=== PATIENT | male | born 1965 | race Caucasian/White ===

== ENCOUNTER 2018-08-19 11:03 | Day surgery (SDC) | payer MEDICARE ==
[2013-02-28 12:14] VITALS: BP 144/95
[2018-08-19] MEDS ORDERED: Depo-Medrol 40 MG/ML IM ONE (11:04)
[2018-08-19] MEDS ORDERED: Sodium Chloride 0.9(Preservative Free) 10 ML IJ ONE (11:04)
[2018-08-19] MEDS ORDERED: Xylocaine 1% Vial 30 ML PF IJ ONE (11:04)
--- NOTE | 2018-08-19 13:40 | XRAY ---
33 seconds fluoroscopy time in surgery for left L3-L5 ROSIE.
--- NOTE | 2018-08-19 13:44 | XRAY ---
Indication: Left L3-L5 ROSIE. Intraoperative fluoroscopy was provided for 33 seconds. 3 digital spot images submitted for interpretation demonstrates posterior spinal needle tips projecting over the expected course of the left L3 and L4 nerve roots. Small amount of contrast injected for needle tip placement. Correlate with intraoperative findings/report.
== END 2018-08-19 13:16 | disposition home or self-care (01) ==
LOC: SDC-PAIN 11:03
PROVIDERS: ATTEND Psychiatry & Neurology Pain Medicine
DX: M54.16 Radiculopathy, lumbar region (principal); M47.816 Spondylosis without myelopathy or radiculopathy, lumbar region; I10 Essential (primary) hypertension; J44.9 Chronic obstructive pulmonary disease, unspecified; E78.00 Pure hypercholesterolemia, unspecified; K21.9 Gastro-esophageal reflux disease without esophagitis; J45.909 Unspecified asthma, uncomplicated; F20.9 Schizophrenia, unspecified; G25.81 Restless legs syndrome; Z79.899 Other long term (current) drug therapy
CPT/HCPCS: 72020; 77003; J1030; J2001

== ENCOUNTER 2020-10-06 14:17 | Observation (INO) | payer MEDICARE ==
[2020-10-06] MEDS ORDERED: Zofran 4 MG/2 ML VIAL IV ONE (14:58)
[2020-10-06] MEDS ORDERED: Sodium Chloride 0.9% 1000 ML 1,000 ML IV STA (14:58)
[2020-10-06] MEDS ORDERED: Zofran 4 MG/2 ML VIAL ONE (15:11)
[2020-10-06] MEDS ORDERED: MORPHINE SULFATE 4 MG INJ ONE (15:12)
[2020-10-06] MEDS ORDERED: Sodium Chloride 0.9% 1000 ML 1,000 ML ONE (15:12)
[2020-10-06 15:16] LABS: Appearance CLEAR (CLEAR); Bilirubin NEGATIVE (NEGATIVE); Blood SMALL Ery/ul (0-5); Glucose NEGATIVE (NEGATIVE); Ketones NEGATIVE (NEGATIVE); Leukocyte Esterase NEGATIVE (NEGATIVE); Mucus SLIGHT /HPF (NEGATIVE); Nitrite NEGATIVE (NEGATIVE); Protein,Urine Dip NEGATIVE (Negative); RBC 0-2 /HPF (0-2); Specific Gravity 1.011 (1.005-1.025); Urobilinogen NEGATIVE mg/dL (0-1)
[2020-10-06] MEDS: MORPHINE SULFATE 4 MG INJ IV ONE ×2 (15:18→18:00)
[2020-10-06 15:19] LABS: Bacteria NONE SEEN /HPF (NEGATIVE)
[2020-10-06 15:21] LABS: Absolute Neutrophil Ct (ANC) 5.08 (1.4-6.9); BASOPHIL % 0.1 % (0.0-0.4); Basophil (Absolute #) 0.01 (0-0.4); Eosinophil % 0.4 % (0.00-5.0); Eosinophil (Absolute #) 0.03 (0-0.5); Hematocrit 41.5 % (42-50); Hemoglobin 13.5 gm/dl (12.5-18.0); Lymphocyte (Absolute #) 0.92 (1.0-4.6); Lymphocytes % 13.2 % (24.0-44.0); Mean Cell Volume 93.5 fl (78-100); Mean Corpuscular Hemoglobin 30.4 pg (26-32); Mean Corpuscular Hgb Concent. 32.5 g/dl (32-36); Mean Platelet Volume 10.7 fl (7.5-11.0); Monocyte (Absolute #) 0.93 (0.0-1.3); Monocytes % 13.3 % (0.0-12.0); Platelet Count 180 K/mm3 (150-450); Red Blood Count 4.44 M/mm3 (4.1-5.6); Red Cell Distribution Width 13.6 % (11.5-14.0)
[2020-10-06 15:26] LABS: ALBUMIN 4.1 g/dL (3.5-5.0); ALKALINE PHOSPHATASE 87 U/L (38-126); ANION GAP 13.6 MEQ/L (5-15); BLOOD UREA NITROGEN 15 mg/dL (9-20); CHLORIDE 102 mmol/L (98-107); Calcium 9.2 mg/dL (8.4-10.2); Carbon Dioxide 27 mmol/L (22-30); Creatinine 1 0.79 mg/dL (0.66-1.25); EST GLOMERULAR FILTRATION RATE > 60.0 ML/MIN; Glucose 124 mg/dL (74-106); LIPASE 20 U/L (23-300); Potassium 3.8 mmol/L (3.5-5.1); SGOT/AST 25 U/L (17-59); SGPT/ALT 29 U/L (0-50); SODIUM 139 mmol/L (137-145); Total Protein 6.7 g/dL (6.3-8.2)
--- NOTE | 2020-10-06 15:27 | ERPHSYRPT ---
- History of Present Illness Time Seen by Provider: 10/06/20 14:20 Historian: patient Exam Limitations: no limitations Patient Subjective Stated Complaint: abd pain and diarrhea Triage Nursing Assessment: pt to ED c/o abd pain and diarrhea x 4 days, many episodes daily. tolerating PO well at this time reported. states q 15 minutes he is having diarrhea episode. rates 1/10 sharp lower abd pain that does not radiate. no NV or COVID exposure reported. skin PWD. A&Ox3. ambulatory without assist. Physician History: 55 years old male presented in the ER with chief complaint of 4-day history of left-sided abdominal pain and diarrhea. Patient report having multiple episodes of loose watery stool with a little tinge of blood earlier today. He denies passing any clots. Pain is moderate intensity, sharp cramping in nature, without any significant aggravating or relieving factors. Patient feels weak fatigued tired and dehydrated. Denies any nausea or vomiting associated with it. No fever or chills reported. Timing/Duration: day(s) (4), gradual onset, worse Activities at Onset: rest Quality: cramping, sharpness Abdominal Pain Onset Location: LLQ, flank Pain Radiation: no radiation Severity of Pain-Max: moderate Severity of Pain-Current: moderate Modifying Factors: Worsens With: movement, palpation, vomiting Associated Symptoms: diarrhea, No fever/chills Previous symptoms: no prior history Allergies/Adverse Reactions: No Known Drug Allergies Allergy (Verified 10/06/20 14:32) Home Medications: Aripiprazole [Abilify] 30 mg PO DAILY 02/28/13 [History] Aspirin [Aspirin EC] 81 mg PO DAILY 02/28/13 [History] Metoprolol Succinate 25 mg Xl* [Toprol-Xl 25MG Tablets] 25 mg PO DAILY 02/28/13 [History] Multivitamin W-Minerals/Lutein [Centrum Silver Tablet] 1 each PO DAILY 02/28/13 [History] Tizanidine HCl 4 mg [Zanaflex 4 MG] 4 mg PO BIDPRN PRN 02/28/13 [History] Omeprazole 20 MG [Prilosec 20 mg] 1 cap PO DAILY 05/21/13 [History] Pravastatin Sodium 10 mg [Pravachol 10 MG] 1 tab PO DAILY 05/21/13 [History] Albuterol Sulfate [Proair Respiclick] 90 mcg IH QID 08/31/15 [History] Fluticasone Propionate [Flonase NASAL] 16 gm NS DAILY 08/31/15 [History] Nitroglycerin 0.4 mg Tablet [Nitrostat 0.4 MG Tablet] 0.4 mg SL ...PRN 08/31/15 [History] Pramipexole Di-HCl [Mirapex] 0.5 mg PO HS 08/31/15 [History] cilostazoL [Cilostazol] 50 mg PO BID 08/31/15 [History] Oxycodone HCl/Acetaminophen [Percocet 7.5-325 mg Tablet] 1 each PO Q6H PRN PRN 09/08/17 [History] Celecoxib [Celebrex] 200 mg PO DAILY 11/10/17 [History] Gabapentin 300 mg PO HS 11/10/17 [History] Amitriptyline HCl 25 mg [Elavil 25 mg] 25 mg PO DAILY 10/06/20 [History] Hx Tetanus, Diphtheria Vaccination/Date Given: No Hx Influenza Vaccination/Date Given: Yes Hx Pneumococcal Vaccination/Date Given: No Immunizations Up to Date: Yes Travel Risk - International Travel Have you traveled outside of the country in past 3 weeks: No - Coronavirus Screening Are you exhibiting any of the following symptoms?: Yes Symptoms: Vomiting/Diarrhea Close contact with a COVID-19 positive Pt in past 14-21 Days: No - Vaccine Status Have you recieved a Covid-19 vaccination: Yes [employer]: Moderna - Vaccination Dates Date of 2cond Vaccination (if applicable): due 10/17/20 - Review of Systems Constitutional: No Symptoms Eyes: No Symptoms Ears, Nose, & Throat: No Symptoms Respiratory: No Symptoms Cardiac: No Symptoms Abdominal/Gastrointestinal: Abdominal Pain, Diarrhea Genitourinary Symptoms: No Symptoms Musculoskeletal: No Symptoms Skin: No Symptoms Neurological: No Symptoms Psychological: No Symptoms Endocrine: No Symptoms Hematologic/Lymphatic: No Symptoms Immunological/Allergic: No Symptoms - Past Medical History Pertinent Past Medical History: Yes Cardiac History: Coronary Artery Disease, High Cholesterol, Hypertension Respiratory History: COPD Musculoskeletal History: Arthritis GI Medical History: GERD Psycho-Social History: Anxiety, Bipolar, Depression, Other Male Reproductive Disorders: No Pertinent History - Past Surgical History Past Surgical History: Yes Cardiac: Cardiac Catheterization, Pacemaker - Social History Smoking Status: Never smoker Exposure to second hand smoke: No Drug Use: none Patient Lives Alone: No - Nursing Vital Signs Nursing Vital Signs: Initial Vital Signs Temperature 98.9 F 10/06/20 14:25 Pulse Rate 90 10/06/20 14:25 Respiratory Rate 19 10/06/20 14:25 Blood Pressure 143/79 10/06/20 14:25 O2 Sat by Pulse Oximetry 96 10/06/20 14:25 Pain Scale Pain Intensity 3 - Physical Exam General Appearance: no apparent distress, alert Eye Exam: eyes nml inspection Ears, Nose, Throat Exam: normal ENT inspection, pharynx normal Neck Exam: normal inspection, supple, full range of motion Respiratory Exam: normal breath sounds, lungs clear Cardiovascular Exam: regular rate/rhythm, normal heart sounds Gastrointestinal/Abdomen Exam: soft, normal bowel sounds, tenderness (LLQ, flank suprapubic ) Back Exam: normal inspection, normal range of motion, No CVA tenderness Extremity Exam: normal inspection, normal range of motion Neurologic Exam: alert, oriented x 3, cooperative Skin Exam: normal color SpO2 Interpretation: normal SpO2: 96 O2 Delivery: Room Air Ordered Tests: Active Orders 24 hr Category Date Time Status IV Insertion STAT Care 10/06/20 14:58 Active NPO (ED) STAT Care 10/06/20 14:58 Active ABDOMEN AND PELVIS W CONTRAST [CT] Stat Exams 10/06/20 14:59 Completed CBC W DIFF Stat Lab 10/06/20 14:37 Completed CMP Stat Lab 10/06/20 14:37 Completed LIPASE Stat Lab 10/06/20 14:37 Completed UA W/RFX UR CULTURE Stat Lab 10/06/20 14:58 Completed Medication Summary Generic Name Dose Route Start Last Admin Trade Name Freq PRN Reason Stop Dose Admin Piperacillin Sod/Tazobactam 100 mls @ 200 mls/hr 10/06/20 16:44 Sod 3.375 gm/ Sodium Chloride IV 10/06/20 17:13 STAT ONE Discontinued Medications Generic Name Dose Route Start Last Admin Trade Name Freq PRN Reason Stop Dose Admin Sodium Chloride 1,000 mls @ 999 mls/hr 10/06/20 14:58 10/06/20 15:17 Sodium Chloride 0.9% 1000 Ml IV 10/06/20 15:58 999 mls/hr .Q1H1M STA Administration Sodium Chloride Confirm 10/06/20 15:12 Sodium Chloride 0.9% 1000 Ml Administered 10/06/20 15:13 Dose 1,000 mls @ ud .ROUTE .STK-MED ONE Morphine Sulfate 4 mg 10/06/20 14:58 Morphine Sulfate 4 Mg Inj IV 10/06/20 14:59 STAT ONE Morphine Sulfate Confirm 10/06/20 15:12 Morphine Sulfate 4 Mg Inj Administered 10/06/20 15:13 Dose 4 mg .ROUTE .STK-MED ONE Ondansetron HCl 4 mg 10/06/20 14:58 10/06/20 15:18 Zofran 4 Mg/2 Ml Vial IV 10/06/20 14:59 4 mg STAT ONE Administration Ondansetron HCl Confirm 10/06/20 15:11 Zofran 4 Mg/2 Ml Vial Administered 10/06/20 15:12 Dose 4 mg .ROUTE .STK-MED ONE Lab/Rad Data: Laboratory Result Diagrams 10/06/20 14:37 10/06/20 14:37 Laboratory Results 10/06/20 10/06/20 10/06/20 Range/Units 14:58 14:37 14:37 WBC 7.0 (4.0-10.5) K/mm3 RBC 4.44 (4.1-5.6) M/mm3 Hgb 13.5 (12.5-18.0) gm/dl Hct 41.5 L (42-50) % MCV 93.5 (78-100) fl MCH 30.4 (26-32) pg MCHC 32.5 (32-36) g/dl RDW 13.6 (11.5-14.0) % Plt Count 180 (150-450) K/mm3 MPV 10.7 (7.5-11.0) fl Gran % 73.0 H (36.0-66.0) % Eos # (Auto) 0.03 (0-0.5) Absolute Lymphs (auto) 0.92 L (1.0-4.6) Absolute Monos (auto) 0.93 (0.0-1.3) Lymphocytes % 13.2 L (24.0-44.0) % Monocytes % 13.3 H (0.0-12.0) % Eosinophils % 0.4 (0.00-5.0) % Basophils % 0.1 (0.0-0.4) % Absolute Granulocytes 5.08 (1.4-6.9) Basophils # 0.01 (0-0.4) Sodium 139 (137-145) mmol/L Potassium 3.8 (3.5-5.1) mmol/L Chloride 102 (98-107) mmol/L Carbon Dioxide 27 (22-30) mmol/L Anion Gap 13.6 (5-15) MEQ/L BUN 15 (9-20) mg/dL Creatinine 0.79 (0.66-1.25) mg/dL Estimated GFR > 60.0 ML/MIN Glucose 124 H (74-106) mg/dL Calcium 9.2 (8.4-10.2) mg/dL Total Bilirubin 0.50 (0.2-1.3) mg/dL AST 25 (17-59) U/L ALT 29 (0-50) U/L Alkaline Phosphatase 87 (38-126) U/L Serum Total Protein 6.7 (6.3-8.2) g/dL Albumin 4.1 (3.5-5.0) g/dL Lipase 20 L (23-300) U/L Urine Color YELLOW (YELLOW) Urine Appearance CLEAR (CLEAR) Urine pH 6.0 (5-6) Ur Specific Bath 1.011 (1.005-1.025) Urine Protein NEGATIVE (Negative) Urine Ketones NEGATIVE (NEGATIVE) Urine Blood SMALL (0-5) Freddy/ul Urine Nitrite NEGATIVE (NEGATIVE) Urine Bilirubin NEGATIVE (NEGATIVE) Urine Urobilinogen NEGATIVE (0-1) mg/dL Ur Leukocyte Esterase NEGATIVE (NEGATIVE) Urine WBC (Auto) NONE (0-5) /HPF Urine RBC (Auto) 0-2 (0-2) /HPF Urine Bacteria (Auto) NONE SEEN (NEGATIVE) /HPF Urine Mucus (Auto) SLIGHT (NEGATIVE) /HPF Urine Culture Reflexed NO (NO) Urine Glucose NEGATIVE (NEGATIVE) mg/dL - Progress Progress: improved, re-examined Progress Note: 10/06/20 16:57 55 years old is evaluated for left-sided abdominal pain and diarrhea without fever chills. Given fluid bolus and morphine for symptomatic relief. Work-up showed normal white count, grossly unremarkable chemistries. I have obtained CT abdomen pelvis with contrast which showed diffuse colitis. Since patient does not have any perforation, no fever and normal white count, discussed with him about antibiotics and going home but patient reports he cannot take it anymore and would prefer to stay in the hospital. I have started him on Zosyn. Discussed with Dr. Sanderson and patient is being admitted. Discussed with : Flavia Will see patient in: hospital (observation) Counseled pt/family regarding: lab results, diagnosis, rad results - Departure Departure Disposition: Observation Clinical Impression: Infectious colitis Condition: Stable Critical Care Time: No Referrals: LILLIE DEMPSEY MD [Primary Care Provider] -
--- NOTE | 2020-10-06 16:36 | XRAY ---
Indication: Abdomen/pelvic pain, diarrhea, blood in stool, and chills. Multiple contiguous axial images obtained through the abdomen and pelvis using 80 cc Isovue 370 contrast. Comparison: None Lung bases demonstrates minimal dependent atelectasis and tiny right base calcified granuloma. No infiltrate or effusion. Heart is not enlarged. Noncontrasted stomach and bowel loops appear nonobstructed. Normal appendix. Transverse, descending, and sigmoid colon demonstrates mild diffuse circumferential wall thickening with minimal descending/sigmoid colonic stranding favoring colitis. A few descending colonic diverticulosis. No free fluid/air. Gallbladder contracted without gallstones. Spleen is enlarged measuring 14 cm. Left kidney demonstrates a few cysts, largest 2 cm in the upper pole. Tiny 5 mm right mid renal cortical cyst. Remaining liver, gallbladder, pancreas, spleen, adrenal glands, kidneys, ureters, bladder, and aorta are unremarkable. No pathologic retroperitoneal lymphadenopathy. Osseous structures intact with lumbosacral degenerative disc disease. Small fatty left inguinal hernia. Impression: 1. CT findings as detailed favoring colitis. No complications. 2. Incidental minimal colonic diverticulosis, splenomegaly, bilateral renal cysts, and small fatty left inguinal hernia.
[2020-10-06] MEDS ORDERED: Zosyn 3.375 GM Vial 3.375 GM in Sodium Chloride 100ML MINI-BAG PLUS 100 ML IV ONE (16:44)
[2020-10-06] MEDS ORDERED: Zosyn 3.375 GM Vial IV ONE (16:51)
[2020-10-06] MEDS ORDERED: Sodium Chloride 100ML MINI-BAG PLUS 100 ML IV ONE (16:53)
[2020-10-06 18:48] LABS: INFLUENZA A NEGATIVE (NEGATIVE); INFLUENZA B NEGATIVE (NEGATIVE); RESPIRATORY SYNCTIAL VIRUS NEGATIVE (Negative)
[2020-10-06] MEDS ORDERED: MORPHINE SULFATE 4 MG INJ IV PRN (19:56)
[2020-10-06] MEDS ORDERED: Zofran 4 MG/2 ML VIAL IV PRN (19:56)
[2020-10-06] MEDS ORDERED: DUONEB 0.5-3 MG/3 ml Neb IH PRN (19:56)
[2020-10-06] MEDS: Sodium Chloride 0.9% W/ 20 mEq KCl/LITER 1,000 ML IV SCH (20:48)
[2020-10-06] MEDS ORDERED: ATARAX 25 MG PO PRN (22:00)
[2020-10-06] MEDS ORDERED: Zanaflex 4 MG PO PRN (22:35)
[2020-10-06] MEDS: Pletal 100 MG PO SCH (23:07)
[2020-10-06] MEDS: ZOCOR 20MG PO SCH (23:08)
[2020-10-06] MEDS: ELAVIL 25 MG PO SCH (23:08)
[2020-10-06] MEDS: NEURONTIN 300 MG PO SCH (23:08)
[2020-10-06] MEDS: Zosyn 3.375 GM Vial 3.375 GM in Sodium Chloride 100ML MINI-BAG PLUS 100 ML IV SCH (23:39)
[2020-10-07] MEDS ORDERED: Zosyn 3.375 GM Vial IV ONE ×2 (00:53→06:21)
[2020-10-07] MEDS ORDERED: Sodium Chloride 100ML MINI-BAG PLUS 100 ML IV ONE ×2 (00:56→06:21)
[2020-10-07] MEDS: Zosyn 3.375 GM Vial 3.375 GM in Sodium Chloride 100ML MINI-BAG PLUS 100 ML IV SCH ×2 (00:59→06:39)
[2020-10-07] MEDS: Sodium Chloride 0.9% W/ 20 mEq KCl/LITER 1,000 ML IV SCH ×3 (05:25→20:47)
[2020-10-07] MEDS: PERCOCET TABLET 5/325MG PO PRN ×3 (05:45→20:47)
[2020-10-07 06:15] LABS: Absolute Neutrophil Ct (ANC) 3.96 (1.4-6.9); BASOPHIL % 0.3 % (0.0-0.4); Basophil (Absolute #) 0.02 (0-0.4); Eosinophil (Absolute #) 0.07 (0-0.5); Hematocrit 43.2 % (42-50); Hemoglobin 13.8 gm/dl (12.5-18.0); Lymphocyte (Absolute #) 1.58 (1.0-4.6); Lymphocytes % 22.5 % (24.0-44.0); Mean Cell Volume 94.9 fl (78-100); Mean Corpuscular Hemoglobin 30.3 pg (26-32); Mean Corpuscular Hgb Concent. 31.9 g/dl (32-36); Mean Platelet Volume 10.4 fl (7.5-11.0); Monocyte (Absolute #) 1.38 (0.0-1.3); Monocytes % 19.7 % (0.0-12.0); Neutrophil % 56.5 % (36.0-66.0); Platelet Count 166 K/mm3 (150-450); Red Blood Count 4.55 M/mm3 (4.1-5.6); Red Cell Distribution Width 13.9 % (11.5-14.0)
[2020-10-07 06:25] LABS: ALBUMIN 3.9 g/dL (3.5-5.0); ALKALINE PHOSPHATASE 73 U/L (38-126); ANION GAP 12.5 MEQ/L (5-15); BLOOD UREA NITROGEN 11 mg/dL (9-20); CHLORIDE 103 mmol/L (98-107); Calcium 8.6 mg/dL (8.4-10.2); Carbon Dioxide 27 mmol/L (22-30); Creatinine 1 0.83 mg/dL (0.66-1.25); EST GLOMERULAR FILTRATION RATE > 60.0 ML/MIN; Glucose 97 mg/dL (74-106); Potassium 3.5 mmol/L (3.5-5.1); SGOT/AST 25 U/L (17-59); SGPT/ALT 29 U/L (0-50); SODIUM 139 mmol/L (137-145); Total Protein 6.6 g/dL (6.3-8.2)
[2020-10-07] MEDS: Advair Hfa 230/21 Mcg COMMON CANISTER IH SCH (07:39)
[2020-10-07] MEDS: Pletal 100 MG PO SCH ×2 (07:58→16:38)
[2020-10-07 08:28] LABS: C. Difficile Organism NEGATIVE (NEGATIVE); Campylobacter NEGATIVE (NEGATIVE); Plesiomonas shigelloides NEGATIVE (NEGATIVE)
[2020-10-07 08:29] LABS: Adenovirus F 40/41 NEGATIVE (NEGATIVE); Astrovirus NEGATIVE (NEGATIVE); Cryptosporidium NEGATIVE (NEGATIVE); Cyclospora cayentanensis NEGATIVE (NEGATIVE); Entamoeaba histolytica NEGATIVE (NEGATIVE); Enteroaggregative E.coli NEGATIVE (NEGATIVE); Enteropathogenic E.coli NEGATIVE (NEGATIVE); Enterotoxigenic E.coli NEGATIVE (NEGATIVE); Giardia lamblia NEGATIVE (NEGATIVE); Norovirus GI/GII NEGATIVE (NEGATIVE); Rotavirus A NEGATIVE (NEGATIVE); Salmonella POSITIVE (NEGATIVE); Sapovirus NEGATIVE (NEGATIVE); Shiga-like toxin prod.E.coli NEGATIVE (NEGATIVE); Vibrio NEGATIVE (NEGATIVE); Vibrio cholerae NEGATIVE (NEGATIVE); Yersinia enterocolitica NEGATIVE (NEGATIVE)
[2020-10-07] MEDS ORDERED: PHARMACY DOSING REQUEST MC ONE (08:33)
[2020-10-07] MEDS ORDERED: Nitrostat 0.4 MG Tablet SL PRN (09:15)
[2020-10-07 09:24] LABS: 027 TOX PROD PRESUMPTIVE NEGATIVE (NEGATIVE); TOXIGENIC C. DIFF ORG NEGATIVE (NEGATIVE)
[2020-10-07] MEDS: THERAGRAN MULTIVITAMIN PO SCH (09:41)
[2020-10-07] MEDS: Singulair 10 MG PO SCH (09:41)
[2020-10-07] MEDS: celeBREX 100 MG PO SCH (09:41)
[2020-10-07] MEDS: ECOTRIN 81 MG PO SCH (09:41)
[2020-10-07] MEDS: Abilify 10 MG PO SCH (09:41)
[2020-10-07] MEDS: Protonix 40MG Tablet PO SCH (09:42)
[2020-10-07] MEDS: Toprol-Xl 25MG Tablets PO SCH (09:42)
[2020-10-07] MEDS: Flonase NASAL NS SCH (09:43)
[2020-10-07] MEDS ORDERED: Zocor 10MG PO SCH (10:00)
[2020-10-07] MEDS ORDERED: NON-FORMULARY ITEM (Celecoxib [Celebrex] 200 MG) PO SCH (10:00)
[2020-10-07] MEDS ORDERED: AMOXIL 500 MG PO SCH (10:00)
[2020-10-07] MEDS ORDERED: PRAVASTATIN SODIUM 10 MG PO SCH (10:00)
[2020-10-07] MEDS ORDERED: ARIPIPRAZOLE 30 MG PO SCH (10:00)
[2020-10-07] MEDS ORDERED: PROTONIX 40 MG IV IV SCH (10:00)
[2020-10-07] MEDS ORDERED: OMEPRAZOLE 20 MG PO SCH (10:00)
[2020-10-07] MEDS ORDERED: NON-FORMULARY ITEM (Multivitamin W-Minerals/Lutein [Centrum Silver Tablet] 1 EACH) PO SCH (10:00)
[2020-10-07] MEDS ORDERED: K-LYTE 25 MEQ PO ONE (12:34)
[2020-10-07] MEDS: ROCEPHIN 1 Gm-D5w 50 ml Bag** 1 G/50 ML IVPB IV SCH (13:02)
[2020-10-07] MEDS: PATIENT OWN MEDICATION IH SCH (19:28)
[2020-10-07] MEDS: ZOCOR 20MG PO SCH (20:48)
[2020-10-07] MEDS: ELAVIL 25 MG PO SCH (20:49)
[2020-10-07] MEDS: NEURONTIN 300 MG PO SCH (20:49)
[2020-10-08] MEDS: Advair Hfa 230/21 Mcg COMMON CANISTER IH SCH (01:10)
[2020-10-08] MEDS: PERCOCET TABLET 5/325MG PO PRN ×2 (03:17→09:59)
[2020-10-08] MEDS: Sodium Chloride 0.9% W/ 20 mEq KCl/LITER 1,000 ML IV SCH (04:34)
[2020-10-08] MEDS: PATIENT OWN MEDICATION IH SCH (06:29)
[2020-10-08] MEDS: Pletal 100 MG PO SCH (06:31)
[2020-10-08] MEDS: Protonix 40MG Tablet PO SCH (09:58)
[2020-10-08] MEDS: Toprol-Xl 25MG Tablets PO SCH (09:58)
[2020-10-08] MEDS: Abilify 10 MG PO SCH (09:58)
[2020-10-08] MEDS: Singulair 10 MG PO SCH (09:59)
[2020-10-08] MEDS: celeBREX 100 MG PO SCH (09:59)
[2020-10-08] MEDS: Flonase NASAL NS SCH (09:59)
[2020-10-08] MEDS: THERAGRAN MULTIVITAMIN PO SCH (09:59)
[2020-10-08] MEDS: ECOTRIN 81 MG PO SCH (09:59)
[2020-10-08] MEDS: ROCEPHIN 1 Gm-D5w 50 ml Bag** 1 G/50 ML IVPB IV SCH (10:04)
--- NOTE | 2020-10-08 11:16 | PCM.DCORD ---
- Discharge Disposition: Home, Self-Care Condition: Stable Prescriptions: New Cefuroxime Axetil 500 mg [Ceftin 500 mg] 500 mg PO BID #14 tablet Continue Multivitamin W-Minerals/Lutein [Centrum Silver Tablet] 1 each PO DAILY Tizanidine HCl 4 mg [Zanaflex 4 MG] 4 mg PO BIDPRN PRN PRN Reason: Pain Aspirin [Aspirin EC] 81 mg PO DAILY Aripiprazole [Abilify] 30 mg PO DAILY Metoprolol Succinate 25 mg Xl* [Toprol-Xl 25MG Tablets] 25 mg PO DAILY Omeprazole 20 MG [Prilosec 20 mg] 1 cap PO DAILY Albuterol Sulfate [Proair Respiclick] 90 mcg IH QID Fluticasone Propionate [Flonase NASAL] 16 gm NS DAILY cilostazoL [Cilostazol] 50 mg PO BID Nitroglycerin 0.4 mg Tablet [Nitrostat 0.4 MG Tablet] 0.4 mg SL ...PRN Oxycodone HCl/Acetaminophen [Percocet 7.5-325 mg Tablet] 1 each PO Q6H PRN PRN PRN Reason: Moderate To Severe Pain Celecoxib [Celebrex] 200 mg PO DAILY Gabapentin 300 mg PO HS Amitriptyline HCl 25 mg [Elavil 25 mg] 25 mg PO HS Montelukast Sodium 10 mg [Singulair 10 MG] 10 mg PO DAILY Pravastatin Sodium [Pravachol] 20 mg PO HS Hydroxyzine HCl 25 mg [Atarax 25 mg] 25 mg PO HS PRN PRN Reason: Anxiety Follow up with: LILLIE DEMPSEY MD [Primary Care Provider] -
--- NOTE | 2020-10-08 11:33 | PCM.SSS ---
History of Present Illness - Chief Complaint Chief Complaint: colitis Date: 10/07/20 History of Present Illness: is a 55 year old male who presented to ER with V/D and abdominal pain,diarrhea 3-4 x an hour with tinges of red blood. No one in his family is having symptoms. It started this week on Friday. Prior to onset he had eaten some left over brisket and chicken salad from [employer] and he had farm fresh eggs scrambled at home.PMHx includes HTN,HLD,CAD,COPD,arthritis,GERD,Bipolar depression with anxiety followed by Dr Dempsey. - Review of Systems Constitutional: Weakness Eyes: No Symptoms Ears, Nose, & Throat: No Symptoms Respiratory: No Symptoms Cardiac: No Symptoms Abdominal/Gastrointestinal: Abdominal Pain (improved episodic cramping pain ), Diarrhea (still diarrhea but improved ,no blood today) Genitourinary Symptoms: No Symptoms Musculoskeletal: Arthralgias, Back Pain (chronic Dr Faria follows) Skin: No Symptoms Neurological: No Symptoms Psychological: Anxiety, Depression (controlled on Bipolar meds) Endocrine: No Symptoms Hematologic/Lymphatic: No Symptoms Medications & Allergies Home Medications: Home Medication List Aripiprazole [Abilify] 30 mg PO DAILY 02/28/13 [History Confirmed 10/06/20] Aspirin [Aspirin EC] 81 mg PO DAILY 02/28/13 [History Confirmed 10/06/20] Metoprolol Succinate 25 mg Xl* [Toprol-Xl 25MG Tablets] 25 mg PO DAILY 02/28 [History Confirmed 10/06/20] Multivitamin W-Minerals/Lutein [Centrum Silver Tablet] 1 each PO DAILY 02/28/13 [History Confirmed 10/06/20] Tizanidine HCl 4 mg [Zanaflex 4 MG] 4 mg PO BIDPRN PRN 02/28/13 [History Confirmed 10/06/20] Omeprazole 20 MG [Prilosec 20 mg] 1 cap PO DAILY 05/21/13 [History Confirmed 10/06/20] Albuterol Sulfate [Proair Respiclick] 90 mcg IH QID 08/31/15 [History Confirmed 10/06/20] Fluticasone Propionate [Flonase NASAL] 16 gm NS DAILY 08/31/15 [History Confirmed 10/06/20] Nitroglycerin 0.4 mg Tablet [Nitrostat 0.4 MG Tablet] 0.4 mg SL ...PRN 08/31/15 [History Confirmed 10/06/20] cilostazoL [Cilostazol] 50 mg PO BID 08/31/15 [History Confirmed 10/06/20] Oxycodone HCl/Acetaminophen [Percocet 7.5-325 mg Tablet] 1 each PO Q6H PRN PRN 09/08/17 [History Confirmed 10/06/20] Celecoxib [Celebrex] 200 mg PO DAILY 11/10/17 [History Confirmed 10/06/20] Gabapentin 300 mg PO HS 11/10/17 [History Confirmed 10/06/20] Amitriptyline HCl 25 mg [Elavil 25 mg] 25 mg PO HS 10/06/20 [History Confirmed 10/06/20] Hydroxyzine HCl 25 mg [Atarax 25 mg] 25 mg PO HS PRN 10/06/20 [History Confirmed 10/06/20] Montelukast Sodium 10 mg [Singulair 10 MG] 10 mg PO DAILY 10/06/20 [History Confirmed 10/06/20] Pravastatin Sodium [Pravachol] 20 mg PO HS 10/06/20 [History Confirmed 10/06/20] Cefuroxime Axetil 500 mg [Ceftin 500 mg] 500 mg PO BID #14 tablet 10/08/20 [Rx] Allergies/Adverse Reactions: Allergies Allergy/AdvReac Type Severity Reaction Status Date / Time No Known Drug Allergies Allergy Verified 10/06/20 14:32 - Past Medical History Past Medical History: Yes Neurological History: No Pertinent History ENT History: No Pertinent History Cardiac History: Coronary Artery Disease, High Cholesterol, Hypertension, Other Respiratory History: COPD Endocrine Medical History: No Pertinent History Musculoskelatal History: Arthritis GI Medical History: GERD Pyscho-Social History: Anxiety, Bipolar, Depression, Other Male Reproductive Disorders: No Pertinent History Comment: pacemaker - Past Surgical History Past Surgical History: Yes Neuro Surgical History: No Pertinent History Cardiac History: Cardiac Catheterization, Pacemaker Respiratory Surgery: No Pertinent History GI Surgical History: No Pertinent History Genitourinary Surgical Hx: No Pertinent History Musculskeletal Surgical Hx: No Pertinent History Male Surgical History: No Pertinent History - Social History Smoking Status: Never smoker Exposure to second hand smoke: No Alcohol: None Drug Use: none - Physical Exam Vital Signs: Vital Signs - 24 hr Temp Pulse Resp BP Pulse Ox 10/08/20 07:20 97.8 F 73 20 116/75 93 L 10/08/20 07:00 69 20 96 10/08/20 04:00 97.9 F 64 20 122/77 96 10/07/20 23:58 68 18 96 10/07/20 19:47 97.9 F 72 18 141/84 97 10/07/20 19:28 81 20 95 10/07/20 16:00 98.5 F 71 16 126/75 96 10/07/20 12:00 97.9 F 90 18 94/54 98 General Appearance: no apparent distress Neurologic Exam: alert, oriented x 3, cooperative, normal mood/affect Eye Exam: PERRL/EOMI, eyes nml inspection Ears, Nose, Throat Exam: normal ENT inspection Neck Exam: normal inspection Respiratory Exam: normal breath sounds Cardiovascular Exam: regular rate/rhythm Gastrointestinal/Abdomen Exam: soft (increased bowel sounds,tender Left mid and periumbilical without rebound or guarding.) Rectal Exam: not done Back Exam: other (no CVA tenderness) Extremity Exam: other (no pitting edema no calf tenderness) Results - Labs Lab/Micro Results: Lab Results-Last 24 Hours 10/06/20 Range/Units 06:00 C. difficile Screen NEGATIVE (NEGATIVE) C.difficile 027-NAP1-B1 PRESUMPTIVE NEGATIVE (NEGATIVE) - Radiology Impressions Radiology Exams & Impressions: Radiology Procedures Category Date Time Status ABDOMEN AND PELVIS W CONTRAST [CT] Stat Exams 10/06/20 14:59 Completed - Other Procedures and Tests Respiratory Therapy 10/08/20 07:00 Respiratory MDI BID Assessment/Plan (1) Salmonella enteritis Status: Acute Assessment & Plan: unsure of source of infection,has improved slowly, IV Rocephin started this morning and plan discharge after AM dose Code(s): A02.0 - SALMONELLA ENTERITIS (2) HTN (hypertension) Status: Chronic Qualifiers: Hypertension type: essential hypertension Qualified Code(s): I10 - Essential (primary) hypertension Assessment & Plan: controlled on current home med regime,monitor Code(s): I10 - ESSENTIAL (PRIMARY) HYPERTENSION (3) COPD (chronic obstructive pulmonary disease) Status: Chronic Assessment & Plan: stable (4) Bipolar 1 disorder Status: Chronic Assessment & Plan: stable on current meds Code(s): F31.9 - BIPOLAR DISORDER, UNSPECIFIED Hospital Summary - Hospital Course Hospital Course: Patient was admitted through ER after 3 days of diarrhea. He was volume depleted and weak from watery stools 3-4 x an hour with tinges of red blood. He vomited at the onset but not now. He has abdominal discomfort/cramping. Improved slowly with hydration . IV antibiotic started Zosyn in ER,changed to Rocephin after GI panel revealed Salmonella infection and he was able to tolerate advancing his diet gradually He lives at home with his fiance and is not working ,disabled .He will follow up with Dr Dempsey. Rx Ceftin was sent to pharmacy. - Vitals & Intake/Output Vital Signs: Vital Signs Temperature 97.8 F 10/08/20 07:20 Pulse Rate 73 10/08/20 07:20 Respiratory Rate 20 10/08/20 07:20 Blood Pressure 116/75 10/08/20 07:20 O2 Sat by Pulse Oximetry 93 L 10/08/20 07:20 Intake & Output: Intake & Output 10/05/20 10/06/20 10/07/20 10/08/20 11:59 11:59 11:59 11:59 Intake Total 2019 4847 Balance 2019 4847 Weight 118.1 kg - Lab Result Diagrams: 10/07/20 05:30 10/07/20 05:30 Lab Results-Last 24 Hrs: Lab Results-Last 24 Hours 10/06/20 Range/Units 06:00 C. difficile Screen NEGATIVE (NEGATIVE) C.difficile 027-NAP1-B1 PRESUMPTIVE NEGATIVE (NEGATIVE) - Radiology Exams Ordered Rad Exams-Entire Visit: Radiology Procedures Category Date Time Status ABDOMEN AND PELVIS W CONTRAST [CT] Stat Exams 10/06/20 14:59 Completed - Procedures and Test Procedures and Tests throughout Hospitalization: Therapy Orders & Screens 10/06/20 21:34 RT Screen per Nursing Assess ONCE Comment: Protocol Order Physician Instructions: Greater than 3 points order RT Admission Screen Reason For Exam: Triggered on Admission Diagnosis: colitis Diagnosis: colitis Pneumonia: No Home O2: No Asthma: Yes CHF: No Home CPAP/BIPAP: Yes Home Nebs/MDI: No Total Points: 9 10/06/20 21:50 BiPap/CPAP ROUTINE Comment: PER HOME USE Diagnosis: colitis Respiratory Therapy Assessment DAILY Comment: Diagnosis: colitis 10/08/20 07:00 Respiratory MDI BID Comment: [facility] PT'S HOME MED 2 PUFFS BID Diagnosis: colitis - Discharge Disposition: Home, Self-Care Condition: Stable Prescriptions: New Cefuroxime Axetil 500 mg [Ceftin 500 mg] 500 mg PO BID #14 tablet Continue Multivitamin W-Minerals/Lutein [Centrum Silver Tablet] 1 each PO DAILY Tizanidine HCl 4 mg [Zanaflex 4 MG] 4 mg PO BIDPRN PRN PRN Reason: Pain Aspirin [Aspirin EC] 81 mg PO DAILY Aripiprazole [Abilify] 30 mg PO DAILY Metoprolol Succinate 25 mg Xl* [Toprol-Xl 25MG Tablets] 25 mg PO DAILY Omeprazole 20 MG [Prilosec 20 mg] 1 cap PO DAILY Albuterol Sulfate [Proair Respiclick] 90 mcg IH QID Fluticasone Propionate [Flonase NASAL] 16 gm NS DAILY cilostazoL [Cilostazol] 50 mg PO BID Nitroglycerin 0.4 mg Tablet [Nitrostat 0.4 MG Tablet] 0.4 mg SL ...PRN Oxycodone HCl/Acetaminophen [Percocet 7.5-325 mg Tablet] 1 each PO Q6H PRN PRN PRN Reason: Moderate To Severe Pain Celecoxib [Celebrex] 200 mg PO DAILY Gabapentin 300 mg PO HS Amitriptyline HCl 25 mg [Elavil 25 mg] 25 mg PO HS Montelukast Sodium 10 mg [Singulair 10 MG] 10 mg PO DAILY Pravastatin Sodium [Pravachol] 20 mg PO HS Hydroxyzine HCl 25 mg [Atarax 25 mg] 25 mg PO HS PRN PRN Reason: Anxiety Instructions: Salmonellosis (Salmonella Infection) (DC) Follow up with: LILLIE DEMPSEY MD [Primary Care Provider] - Forms: Discharge Instructions
[2020-10-08 13:05] VITALS: BP 132/72; PULSE 76; O2SAT 94
[2020-10-08] MEDS ORDERED: PATIENT OWN MEDICATION IH SCH (19:00)
== END 2020-10-08 13:15 | disposition home or self-care (01) ==
LOC: ED 14:17 → MED SURG 19:41
PROVIDERS: ADMIT General Practice; ATTEND General Practice
DX: A02.0 Salmonella enteritis (principal); R10.9 Unspecified abdominal pain; I10 Essential (primary) hypertension; J44.9 Chronic obstructive pulmonary disease, unspecified; F31.9 Bipolar disorder, unspecified; Z79.899 Other long term (current) drug therapy; E78.00 Pure hypercholesterolemia, unspecified
CPT/HCPCS: 0097U; 0241U; 36415; 74177; 80053; 81001; 83690; 85025; 87493; 94640; 94760; 96365; 96374; 99284; G0378; J0696; J2270; J2405; A9270-GY

== ENCOUNTER 2020-12-06 15:21 | Day surgery (SDC) | payer MEDICARE ==
[2013-02-28 12:14] VITALS: BP 144/95
[2020-12-06] MEDS ORDERED: BUPIVACAINE 0.5% VIAL IJ ONE (15:22)
[2020-12-06] MEDS ORDERED: Depo-Medrol 40 MG/ML IM ONE (15:22)
[2020-12-06] MEDS ORDERED: Lactated Ringers 1,000 ML IV ONE (16:00)
[2020-12-06] MEDS ORDERED: DIPRIVAN 200 MG/20 ML IV ONE (17:28)
--- NOTE | 2020-12-06 20:47 | XRAY ---
Indication: Left knee interarticular injection. Intraoperative fluoroscopy provided for 11 seconds. Single digital spot image submitted for interpretation demonstrates needle tip projecting over the left femur intercondylar notch. Small amount of contrast injected for needle tip placement. Correlate with intraoperative findings/report.
--- NOTE | 2020-12-07 09:12 | XRAY ---
11 seconds fluoroscopy time in surgery for intra-articular injection of the right knee.
== END 2020-12-06 17:55 | disposition home or self-care (01) ==
LOC: SDC-PAIN 15:21
PROVIDERS: ATTEND Psychiatry & Neurology Pain Medicine
DX: M17.12 Unilateral primary osteoarthritis, left knee (principal); K21.9 Gastro-esophageal reflux disease without esophagitis; J44.9 Chronic obstructive pulmonary disease, unspecified; E78.00 Pure hypercholesterolemia, unspecified; I10 Essential (primary) hypertension; J45.909 Unspecified asthma, uncomplicated; G25.81 Restless legs syndrome; Z79.899 Other long term (current) drug therapy
CPT/HCPCS: 20610; 73560; 77002; J1030; J2704; Q9966

== ENCOUNTER 2021-07-11 09:38 | Day surgery (SDC) | payer MEDICARE ==
[2013-02-28 12:14] VITALS: BP 144/95
[2021-07-11] MEDS ORDERED: Depo-Medrol 40 MG/ML IM ONE (09:39)
[2021-07-11] MEDS ORDERED: DIPRIVAN 200 MG/20 ML IV ONE (09:39)
[2021-07-11] MEDS ORDERED: Sodium Chloride 0.9% 10 ML FLUSH Syringe IJ ONE (09:39)
[2021-07-11] MEDS ORDERED: Lactated Ringers 1,000 ML IV ONE (12:18)
--- NOTE | 2021-07-11 13:28 | XRAY ---
Indication: Left L3-L5 transforaminal ROSIE. Intraoperative fluoroscopy provided for 26 seconds. 4 digital spot image submitted for interpretation demonstrates posterior needle tips projecting over the expected left L3 and L4 nerve roots. Small amount of contrast injected for needle tip placement. Correlate with intraoperative findings/report.
--- NOTE | 2021-07-11 13:34 | XRAY ---
26 seconds of fluoroscopy was used in surgery for a left L3-L5 transforaminal ROSIE.
== END 2021-07-11 13:01 | disposition home or self-care (01) ==
LOC: SDC-PAIN 09:38
PROVIDERS: ATTEND Psychiatry & Neurology Pain Medicine
DX: M54.16 Radiculopathy, lumbar region (principal); I10 Essential (primary) hypertension; E78.5 Hyperlipidemia, unspecified; Z79.899 Other long term (current) drug therapy
CPT/HCPCS: 64483; 64484; 72100; 77003; J1030; J2704; Q9966

== ENCOUNTER 2021-10-26 14:33 | Emergency (ER) | payer MEDICARE ==
[2021-10-26] MEDS ORDERED: Zofran 4 MG/2 ML VIAL IV ONE (14:54)
[2021-10-26] MEDS ORDERED: Sodium Chloride 0.9% 1000 ML 1,000 ML IV STA (14:54)
--- NOTE | 2021-10-26 15:01 | ERPHSYRPT ---
- History of Present Illness Historian: patient Exam Limitations: no limitations Patient Subjective Stated Complaint: pt here for abd pain, n/v/d since friday, no fevers Triage Nursing Assessment: pt alert, resp easy, face mask in place, skin w/d/p. abd large and round,no edema noted Physician History: 56 yo wm w N/V/D x 4 days. Pt has mild diffuse abdominal pain which is a 2 on scale at present but has been up to a 5-6. He denies fever/melen a/hematochezia/chest pain/dysuria/hematuria/cough. Pt is unable to hold down fluids at this time. Timing/Duration: other (4 days) Quality: cramping Abdominal Pain Onset Location: generalized abdomen Pain Radiation: no radiation Severity of Pain-Max: moderate Severity of Pain-Current: mild Modifying Factors: Improves With: nothing Associated Symptoms: diarrhea, loss of appetite, nausea, vomiting, weakness, No back, No chest pain, No diaphoresis, No fever/chills, No fatigue, No headache, No heartburn, No neck pain, No rash, No shortness of breath, No syncope, No testicular pain Previous symptoms: no prior history Allergies/Adverse Reactions: No Known Drug Allergies Allergy (Verified 10/26/21 14:45) Home Medications: ARIPiprazole [Abilify] 30 mg PO DAILY 02/28/13 [History] Aspirin [Aspirin EC] 81 mg PO DAILY 02/28/13 [History] Metoprolol Succinate 25 mg Xl* [Toprol-Xl 25MG Tablets] 25 mg PO DAILY [History] Multivitamin W-Minerals/Lutein [Centrum Silver Tablet] 1 each PO DAILY 02/28/13 [History] Tizanidine HCl 4 mg [Zanaflex 4 MG] 4 mg PO BIDPRN PRN 02/28/13 [History] Omeprazole 20 MG [Prilosec 20 mg] 1 cap PO DAILY 05/21/13 [History] Albuterol Sulfate [Proair Respiclick] 90 mcg IH QID 08/31/15 [History] Fluticasone Propionate [Flonase NASAL] 16 gm NS DAILY 08/31/15 [History] Nitroglycerin 0.4 mg Tablet [Nitrostat 0.4 MG Tablet] 0.4 mg SL ...PRN 08/31/15 [History] cilostazoL [Cilostazol] 50 mg PO BID 08/31/15 [History] Oxycodone HCl/Acetaminophen [Percocet 7.5-325 mg Tablet] 1 each PO Q6H PRN PRN 09/08/17 [History] Celecoxib [Celebrex] 200 mg PO DAILY 11/10/17 [History] Gabapentin 300 mg PO HS 11/10/17 [History] Amitriptyline HCl 25 mg [Amitriptyline 25 mg Tablet] 25 mg PO HS 10/06/20 [History] Hydroxyzine HCl 25 mg [Atarax 25 mg] 25 mg PO HS PRN 10/06/20 [History] Montelukast Sodium 10 mg [Singulair 10 MG] 10 mg PO DAILY 10/06/20 [History] Pravastatin Sodium [Pravachol] 20 mg PO HS 10/06/20 [History] Ondansetron [Ondansetron Odt] 1 ea DAILY 10/26/21 [History] Hx Tetanus, Diphtheria Vaccination/Date Given: No Hx Influenza Vaccination/Date Given: Yes Hx Pneumococcal Vaccination/Date Given: No Immunizations Up to Date: Yes Travel Risk - International Travel Have you traveled outside of the country in past 3 weeks: No - Coronavirus Screening Are you exhibiting any of the following symptoms?: Yes Symptoms: Vomiting/Diarrhea Close contact with a COVID-19 positive Pt in past 14-21 Days: No - Vaccine Status Have you recieved a Covid-19 vaccination: Yes Rel[employer]: Moderna - Vaccination Dates Date of 2cond Vaccination (if applicable): due 10/17/20 - Review of Systems Constitutional: No Symptoms, Weakness Eyes: No Symptoms Ears, Nose, & Throat: No Symptoms Respiratory: No Symptoms Cardiac: No Symptoms Abdominal/Gastrointestinal: No Symptoms, Abdominal Pain, Nausea, Vomiting, Diarrhea, Appetite Changes, No Constipation, No Hematemesis, No Hematochezia, No Melena, No Dysphagia Genitourinary Symptoms: No Symptoms Musculoskeletal: No Symptoms Skin: No Symptoms Neurological: No Symptoms Psychological: No Symptoms Endocrine: No Symptoms Hematologic/Lymphatic: No Symptoms Immunological/Allergic: No Symptoms - Past Medical History Pertinent Past Medical History: Yes Neurological History: No Pertinent History ENT History: No Pertinent History Cardiac History: Coronary Artery Disease, High Cholesterol, Hypertension, Other Respiratory History: COPD Endocrine Medical History: No Pertinent History Musculoskeletal History: Arthritis GI Medical History: GERD Psycho-Social History: Anxiety, Bipolar, Depression, Other Male Reproductive Disorders: No Pertinent History Other Medical History: pacemaker - Past Surgical History Past Surgical History: Yes Neuro Surgical History: No Pertinent History Cardiac: Cardiac Catheterization, Pacemaker Respiratory: No Pertinent History Gastrointestinal: No Pertinent History Genitourinary: No Pertinent History Musculoskeletal: No Pertinent History Male Surgical History: No Pertinent History - Social History Smoking Status: Never smoker Exposure to second hand smoke: No Drug Use: none Patient Lives Alone: No Significant Family History: no pertinent family hx - Nursing Vital Signs Nursing Vital Signs: Initial Vital Signs Temperature 97.1 F 10/26/21 14:36 Pulse Rate 72 10/26/21 14:36 Respiratory Rate 18 10/26/21 14:36 Blood Pressure 117/88 10/26/21 14:36 O2 Sat by Pulse Oximetry 97 10/26/21 14:36 Pain Scale Pain Intensity 3 WNL - Physical Exam General Appearance: no apparent distress Eye Exam: PERRL/EOMI, eyes nml inspection Ears, Nose, Throat Exam: normal ENT inspection, TMs normal, pharynx normal, moist mucous membranes Neck Exam: normal inspection, non-tender, supple, full range of motion, No meningismus, No mass, No Brudzinski, No Kernig's, No carotid bruit Respiratory Exam: normal breath sounds, lungs clear, airway intact Cardiovascular Exam: regular rate/rhythm, normal heart sounds, normal peripheral pulses, No murmur Gastrointestinal/Abdomen Exam: soft, normal bowel sounds, No tenderness Back Exam: normal inspection, normal range of motion, No CVA tenderness, No vertebral tenderness Extremity Exam: normal inspection, normal range of motion Neurologic Exam: alert, oriented x 3, cooperative, manager social media II-XII nml as tested, normal mood/affect, nml cerebellar function, nml station & gait, sensation nml, No motor deficits, No sensory deficit Skin Exam: normal color, warm, dry Lymphatic Exam: No adenopathy SpO2 Interpretation: normal SpO2: 97 O2 Delivery: Room Air - Course Nursing assessment & vital signs reviewed: Yes EKG Interpreted by Me: RATE (NSR/R63/Normal QT-QTc/IVCD/No acute ST segment changes) - CT Exams Abdomen/Pelvis CT Interpretation: Discussed w/radiologist (NAD/Diverticulosis/B renal cysts/small fatty L inguinal hernia) Ordered Tests: Active Orders 24 hr Category Date Time Status EKG-ER Only STAT Care 10/26/21 16:54 Completed IV Insertion STAT Care 10/26/21 14:54 Completed ABDOMEN AND PELVIS W CONTRAST [CT] Stat Exams 10/26/21 15:51 Completed AMYLASE Stat Lab 10/26/21 15:00 Completed CBC W DIFF Stat Lab 10/26/21 15:00 Completed CMP Stat Lab 10/26/21 15:00 Completed LIPASE Stat Lab 10/26/21 15:00 Completed TROPONIN Q3H Lab 10/26/21 15:00 Completed TROPONIN Q3H Lab 10/26/21 18:00 Completed Medication Summary Discontinued Medications Generic Name Dose Route Start Last Admin Trade Name Freq PRN Reason Stop Dose Admin Sodium Chloride 1,000 mls @ 999 mls/hr 10/26/21 14:54 10/26/21 16:46 Sodium Chloride 0.9% 1000 Ml IV 10/26/21 15:54 Infused .Q1H1M STA Infusion Sodium Chloride Confirm 10/26/21 15:28 Sodium Chloride 0.9% 1000 Ml Administered 10/26/21 15:29 Dose 1,000 mls @ ud .ROUTE .STK-MED ONE Ondansetron HCl 4 mg 10/26/21 14:54 10/26/21 15:32 Ondansetron Hcl 4 Mg/2 Ml Vial IV 10/26/21 14:55 4 mg STAT ONE Administration Ondansetron HCl Confirm 10/26/21 15:28 Ondansetron Hcl 4 Mg/2 Ml Vial Administered 10/26/21 15:29 Dose 4 mg .ROUTE .STK-MED ONE Pantoprazole Sodium 40 mg 10/26/21 16:54 10/26/21 17:05 Pantoprazole 40 Mg Vial IV 10/26/21 16:55 40 mg STAT ONE Administration Pantoprazole Sodium Confirm 10/26/21 17:04 Pantoprazole 40 Mg Vial Administered 10/26/21 17:05 Dose 40 mg IV .STK-MED ONE Lab/Rad Data: Laboratory Result Diagrams 10/26/21 15:00 10/26/21 15:00 Laboratory Results 10/26/21 10/26/21 10/26/21 Range/Units 18:00 15:29 15:00 WBC (4.0-10.5) K/mm3 RBC (4.1-5.6) M/mm3 Hgb (12.5-18.0) gm/dl Hct (42-50) % MCV (78-100) fl MCH (26-32) pg MCHC (32-36) g/dl RDW (11.5-14.0) % Plt Count (150-450) K/mm3 MPV (7.5-11.0) fl Gran % (36.0-66.0) % Eos # (Auto) (0-0.5) Absolute Lymphs (auto) (1.0-4.6) Absolute Monos (auto) (0.0-1.3) Lymphocytes % (24.0-44.0) % Monocytes % (0.0-12.0) % Eosinophils % (0.00-5.0) % Basophils % (0.0-0.4) % Absolute Granulocytes (1.4-6.9) Basophils # (0-0.4) Sodium (137-145) mmol/L Potassium (3.5-5.1) mmol/L Chloride (98-107) mmol/L Carbon Dioxide (22-30) mmol/L Anion Gap (5-15) MEQ/L BUN (9-20) mg/dL Creatinine (0.66-1.25) mg/dL Estimated GFR ML/MIN Glucose (74-106) mg/dL Calcium (8.4-10.2) mg/dL Total Bilirubin (0.2-1.3) mg/dL AST (17-59) U/L ALT (0-50) U/L Alkaline Phosphatase (38-126) U/L Troponin I < 0.012 < 0.012 (0.000-0.034) ng/mL Serum Total Protein (6.3-8.2) g/dL Albumin (3.5-5.0) g/dL Amylase (30-110) U/L Lipase (23-300) U/L Influenza Type A Ag NEGATIVE (NEGATIVE) Influenza Type B Ag NEGATIVE (NEGATIVE) RSV (PCR) NEGATIVE (Negative) SARS-CoV-2 (PCR) NEGATIVE (NEGATIVE) 10/26/21 10/26/21 Range/Units 15:00 15:00 WBC 13.3 H (4.0-10.5) K/mm3 RBC 5.08 (4.1-5.6) M/mm3 Hgb 16.0 (12.5-18.0) gm/dl Hct 46.5 (42-50) % MCV 91.5 (78-100) fl MCH 31.5 (26-32) pg MCHC 34.4 (32-36) g/dl RDW 13.5 (11.5-14.0) % Plt Count 206 (150-450) K/mm3 MPV 10.5 (7.5-11.0) fl Gran % 73.6 H (36.0-66.0) % Eos # (Auto) 0.30 (0-0.5) Absolute Lymphs (auto) 1.70 (1.0-4.6) Absolute Monos (auto) 1.46 H (0.0-1.3) Lymphocytes % 12.8 L (24.0-44.0) % Monocytes % 11.0 (0.0-12.0) % Eosinophils % 2.3 (0.00-5.0) % Basophils % 0.3 (0.0-0.4) % Absolute Granulocytes 9.83 H (1.4-6.9) Basophils # 0.04 (0-0.4) Sodium 136 L (137-145) mmol/L Potassium 4.2 (3.5-5.1) mmol/L Chloride 100 (98-107) mmol/L Carbon Dioxide 20 L (22-30) mmol/L Anion Gap 20.0 H (5-15) MEQ/L BUN 19 (9-20) mg/dL Creatinine 0.92 (0.66-1.25) mg/dL Estimated GFR > 60.0 ML/MIN Glucose 96 (74-106) mg/dL Calcium 9.3 (8.4-10.2) mg/dL Total Bilirubin 1.20 (0.2-1.3) mg/dL AST 24 (17-59) U/L ALT 26 (0-50) U/L Alkaline Phosphatase 76 (38-126) U/L Troponin I (0.000-0.034) ng/mL Serum Total Protein 7.4 (6.3-8.2) g/dL Albumin 4.7 (3.5-5.0) g/dL Amylase 50 (30-110) U/L Lipase 38 (23-300) U/L Influenza Type A Ag (NEGATIVE) Influenza Type B Ag (NEGATIVE) RSV (PCR) (Negative) SARS-CoV-2 (PCR) (NEGATIVE) - Progress Progress Note: 10/26/21 18:40 1L NS bolus/4mg IV Zofran/40mg IV Protonix 10/26/21 18:41 Counseled pt/family regarding: lab results, diagnosis, need for follow-up, rad results - Departure Departure Disposition: Home Clinical Impression: Nausea & vomiting, Diarrhea Condition: Stable Critical Care Time: No Referrals: LILLIE DEMPSEY MD [Primary Care Provider] - Follow up/PCP as directed Instructions: Acute Abdomen (Belly Pain), Adult (DC), Nausea and Vomiting, Sam lt (DC) Additional Instructions: Fluids Zofran for nausea/vomiting Bentyl for pain Start flagyl twice a day Increase Omepazole to 40mg twice a day for 10-14 days Return to ER for increasing pain, temperature greater than 100.5, or inability to hold down fluids Prescriptions: Dicyclomine HCl 20 mg [Bentyl 20 mg] 20 mg PO Q6H PRN PRN #20 tablet PRN Reason: Pain Ondansetron ODT 4 MG [Zofran Odt 4 mg] 4 mg PO Q6H PRN PRN #10 tablet PRN Reason: Nausea Metronidazole 500 mg [Flagyl 500 MG] 500 mg PO BID 7 Days #14 tablet
[2021-10-26 15:06] LABS: Absolute Neutrophil Ct (ANC) 9.83 (1.4-6.9); Basophil (Absolute #) 0.04 (0-0.4); Eosinophil % 2.3 % (0.00-5.0); Hematocrit 46.5 % (42-50); Lymphocytes % 12.8 % (24.0-44.0); Mean Cell Volume 91.5 fl (78-100); Mean Corpuscular Hemoglobin 31.5 pg (26-32); Mean Corpuscular Hgb Concent. 34.4 g/dl (32-36); Mean Platelet Volume 10.5 fl (7.5-11.0); Monocyte (Absolute #) 1.46 (0.0-1.3); Neutrophil % 73.6 % (36.0-66.0); Platelet Count 206 K/mm3 (150-450); Red Blood Count 5.08 M/mm3 (4.1-5.6); Red Cell Distribution Width 13.5 % (11.5-14.0); White Blood Count 13.3 K/mm3 (4.0-10.5)
[2021-10-26 15:21] LABS: ALBUMIN 4.7 g/dL (3.5-5.0); ALKALINE PHOSPHATASE 76 U/L (38-126); AMYLASE 50 U/L (30-110); BLOOD UREA NITROGEN 19 mg/dL (9-20); CHLORIDE 100 mmol/L (98-107); Calcium 9.3 mg/dL (8.4-10.2); Carbon Dioxide 20 mmol/L (22-30); Creatinine 1 0.92 mg/dL (0.66-1.25); EST GLOMERULAR FILTRATION RATE > 60.0 ML/MIN; Glucose 96 mg/dL (74-106); LIPASE 38 U/L (23-300); Potassium 4.2 mmol/L (3.5-5.1); SGOT/AST 24 U/L (17-59); SGPT/ALT 26 U/L (0-50); SODIUM 136 mmol/L (137-145); Total Protein 7.4 g/dL (6.3-8.2)
[2021-10-26] MEDS ORDERED: Zofran 4 MG/2 ML VIAL ONE (15:28)
[2021-10-26] MEDS ORDERED: Sodium Chloride 0.9% 1000 ML 1,000 ML ONE (15:28)
[2021-10-26 16:11] LABS: INFLUENZA A NEGATIVE (NEGATIVE); INFLUENZA B NEGATIVE (NEGATIVE); RESPIRATORY SYNCTIAL VIRUS NEGATIVE (Negative); SARS-CoV-2 Xpert Express NEGATIVE (NEGATIVE)
[2021-10-26 16:53] VITALS: O2SAT 97
[2021-10-26] MEDS ORDERED: PROTONIX 40 MG IV IV ONE ×2 (16:54→17:04)
[2021-10-26 17:08] VITALS: BP 122/82; PULSE 66
--- NOTE | 2021-10-26 22:15 | XRAY ---
Indication: Diarrhea 5 days. Nausea and vomiting. Multiple contiguous axial images obtained through the abdomen and pelvis using 80 cc Isovue 370 contrast. Comparison: October 06, 2020. Lung bases again demonstrates tiny right base calcified/noncalcified granulomas. No infiltrate or effusion. Heart not enlarged again with pacer leads. Stomach is mildly distended with food/fluid. Noncontrasted stomach and bowel loops are nonobstructed again with normal appendix. There remains minimal scattered descending colonic diverticulosis without diverticulitis, a few tiny splenic calcified granulomas, and mild fatty liver. Both kidneys enhance and excrete with a few stable bilateral renal cysts again largest left upper pole measuring 2 cm. Urinary bladder demonstrates stable 1.2 cm left base diverticulum. Remaining liver, gallbladder, pancreas, spleen, adrenal glands, kidneys, ureters, bladder, and aorta are unremarkable. No pathological retroperitoneal lymphadenopathy. Osseous structures intact again with lumbosacral junction degenerative disc disease. Stable small fatty left inguinal hernia. Impression: 1. Again colonic diverticulosis, fatty liver, bilateral renal cysts, urinary bladder diverticulum, small fatty left inguinal hernia, and old granulomatous disease. 2. Remaining CT abdomen/pelvis with contrast exam is negative.
== END 2021-10-26 18:56 | disposition home or self-care (01) ==
LOC: ED 14:33
DX: R11.2 Nausea with vomiting, unspecified (principal); R19.7 Diarrhea, unspecified; R10.84 Generalized abdominal pain; R53.1 Weakness; E78.5 Hyperlipidemia, unspecified; I10 Essential (primary) hypertension; J44.9 Chronic obstructive pulmonary disease, unspecified; K21.9 Gastro-esophageal reflux disease without esophagitis; Z79.891 Long term (current) use of opiate analgesic; Z79.899 Other long term (current) drug therapy; Z20.828 Contact with and (suspected) exposure to other viral communicable diseases
CPT/HCPCS: 0241U; 36000; 36415; 74177; 80053; 82150; 83690; 84484; 85025; 93005; 96360; 96374; 99284; J2405

== ENCOUNTER 2022-09-25 13:03 | Day surgery (SDC) | payer MEDICARE ==
[2013-02-28 12:14] VITALS: BP 144/95
[2022-09-25] MEDS ORDERED: Depo-Medrol 40 MG/ML IM ONE (13:04)
[2022-09-25] MEDS ORDERED: Sodium Chloride 0.9(Preservative Free) 10 ML IJ ONE (13:04)
[2022-09-25] MEDS ORDERED: DIPRIVAN 200 MG/20 ML IV ONE (14:57)
[2022-09-25] MEDS ORDERED: Lactated Ringers 1,000 ML IV ONE (15:20)
--- NOTE | 2022-09-25 16:26 | XRAY ---
Indication: Left L4-S1 transforaminal ROSIE Intraoperative fluoroscopy provided for 33 seconds. 5 digital spot images submitted for interpretation demonstrates posterior needle tips projecting over the expected left L4 and L5 nerve roots. Small amount of contrast injected for needle tip placement. Correlate with intraoperative findings/report.
--- NOTE | 2022-09-26 08:42 | XRAY ---
33 seconds of fluoroscopy was used in surgery for a left L4-S1 transforaminal ROSIE.
== END 2022-09-25 15:30 | disposition home or self-care (01) ==
LOC: SDC-PAIN 13:03
PROVIDERS: ATTEND Psychiatry & Neurology Pain Medicine
DX: M54.16 Radiculopathy, lumbar region (principal); Z79.899 Other long term (current) drug therapy
CPT/HCPCS: 64483; 64484; 72100; 77003; J1030; J2704; Q9966